=== PATIENT | male | born 1970 | race Hispanic/Latino ===

== ENCOUNTER 2016-11-19 12:06 | Emergency (ER) | payer BC ==
[~2016-11-19] VITALS: Ht 157.5 cm; Wt 73.0 kg
[~2016-11-19 12:06] MED LIST: CLARITIN10 M3 PO; GABAPENTIN300 MG PO; HYDROCODON-ACE1 EACH PO; LEVOTHYROXINE50 MCG PO; LISINOPRIL10 MG PO; PERCOCET 5/31 TABLET PO; PREDNISONE20 MG PO
[2016-11-19] MEDS ORDERED: MOTRIN800 MG PO (14:33)
[2016-11-19] MEDS ORDERED: AMOXICILLIN500 MG PO (14:33)
[2016-11-19 14:59] VITALS: BP 145/96
== END 2016-11-19 14:59 | disposition home or self-care (01) ==
LOC: EME 12:06
DX: H60.91 Unspecified otitis externa, right ear (principal)
CPT/HCPCS: 99281; 99283; J1885